=== PATIENT | female | born 1990 | race Two or more races ===

== ENCOUNTER 2020-04-09 15:21 | Emergency (ER) | payer OTHER ==
[~2020-04-09] VITALS: Ht 165.1 cm; Wt 77.1 kg
[2020-04-09 15:56] VITALS: BP 121/83
[2020-04-09] MEDS ORDERED: KETOROLAC TROMETH 60MG/2ML VIAL IM ONE (16:30)
== END 2020-04-09 18:12 | disposition home or self-care (01) ==
LOC: ER 15:21
DX: S16.1XXA Strain of muscle, fascia and tendon at neck level, initial encounter (principal); R51.9 Headache, unspecified; V43.52XA Car driver injured in collision with other type car in traffic accident, initial encounter; Y93.89 Activity, other specified; Y92.488 Other paved roadways as the place of occurrence of the external cause; Y99.8 Other external cause status
CPT/HCPCS: 70450; 71046; 72125; 72170; 96372; 99285; J1885

== ENCOUNTER 2020-11-02 05:29 | Emergency (ER) | payer MEDICAID ==
[~2020-11-02] VITALS: Ht 165.1 cm; Wt 81.6 kg
[2020-11-02] MEDS ORDERED: ONDANSETRON HCL 4 MG/2 ML VIAL IV ONE (06:15)
[2020-11-02] MEDS ORDERED: MORPHINE SULFATE 4 MG/ML SYR/VIAL IV ONE (06:15)
[2020-11-02 06:44] LABS: Urine Bacteria MOD /hpf (None Seen); Urine Blood Negative /uL (Negative); Urine Specific Gravity 1.005 (1.001-1.035); Urine Sperm PRESENT /hpf (None Seen); Urine WBC 4 /hpf (0 - 5)
[2020-11-02] MEDS ORDERED: SODIUM CHLORIDE 0.9% 1,000 ML IV ONE ×2 (07:15)
[2020-11-02 07:22] LABS: Basophils # (auto) 0 10 ^3/uL (0-0.2); Basophils % (auto) 0.3 % (0.0-2.0); Eosinophils # (auto) 0.1 10 ^3/uL (0-0.8); Eosinophils % (auto) 1.1 % (0.0-7.0); Hemoglobin 13.9 g/dL (12.2-16.2); Lymphocytes # (auto) 3.3 10 ^3/uL (0.4-5.4); Lymphocytes % (auto) 43.7 % (10.0-50.0); Mean Corpuscular Hemoglobin 30.7 pg (28.0-32.0); Mean Corpuscular Hgb Conc. 33.9 g/dL (32.0-36.0); Mean Corpuscular Volume 90.4 fL (80.0-100.0); Monocytes # (auto) 0.5 10 ^3/uL (0-1.3); Monocytes % (auto) 6.1 % (0.0-12.0); Neutrophils # (auto) 3.6 10 ^3/uL (1.6-8.6); Neutrophils % (auto) 48.8 % (37.0-80.0); Red Blood Cells 4.53 10^6/uL (4.0-5.20); Red Cell Distribution Width 13.3 % (11.8-14.3); White Blood Cell 7.5 10^3/uL (4.4-10.8)
[2020-11-02 07:36] LABS: Magnesium 2.1 mg/dL (1.6-2.6)
[2020-11-02 07:44] LABS: Albumin 3.9 g/dL (3.4-5.0); BUN/Creatinine Ratio 23.7; Bilirubin, Total 0.6 mg/dL (0.2-1.0); Calcium 8.7 mg/dL (8.5-10.1); Total Protein 7.3 g/dL (6.4-8.2)
[2020-11-02 10:42] VITALS: BP 102/60
== END 2020-11-02 10:59 | disposition home or self-care (01) ==
LOC: EDBD 05:29 → ER 05:29
DX: N20.0 Calculus of kidney (principal); D25.9 Leiomyoma of uterus, unspecified
CPT/HCPCS: 36415; 74176; 76856; 80053; 81001; 82150; 83690; 83735; 84702; 85025; 85049; 96361; 96374; 96375; 99285; J2270; J2405; J7030

== ENCOUNTER 2020-11-17 12:07 | Emergency (ER) | payer MEDICAID ==
[~2020-11-17] VITALS: Ht 165.1 cm; Wt 86.2 kg
[2020-11-17 12:57] VITALS: BP 109/61
[2020-11-17] MEDS ORDERED: methylPREDNISolone SOD SUCC 125 MG/2 ML VL IM ONE (13:30)
[2020-11-17] MEDS ORDERED: diphenhdrAMINE HCL 50 MG/1 ML VL IM ONE (13:30)
[2020-11-17] MEDS ORDERED: EPINEPHrine HCL 1 MG/1 ML AMP IM ONE (13:30)
== END 2020-11-17 14:28 | disposition home or self-care (01) ==
LOC: ER 12:07
DX: T78.40XA Allergy, unspecified, initial encounter (principal); Y92.89 Other specified places as the place of occurrence of the external cause
CPT/HCPCS: 96372; 99284; J0171; J1200; J2930

== ENCOUNTER 2024-02-18 12:35 | Emergency (ER) | payer MEDICAID ==
[~2024-02-18] VITALS: Ht 165.1 cm; Wt 95.2 kg
[~2024-02-18 12:35] MED LIST: BENZ100C97 PO; PROM1SOL4 PO
[2024-02-18 13:53] VITALS: PULSE 84; RESP 18; O2SAT 97
[2024-02-18] MEDS: cefTRIAXone SOD 1,000 MG VL IM ONE (14:09)
[2024-02-18] MEDS: LOPERAMIDE HCL 2 MG CAP/TAB PO ONE (14:09)
[2024-02-18] MEDS ORDERED: LOPE7.5C PO (14:54)
[2024-02-18] MEDS ORDERED: IBUP-1456 PO (14:54)
[2024-02-18] MEDS ORDERED: CIPR-173 PO (14:54)
[2024-02-18 14:59] VITALS: BP 120/68; PULSE 65; RESP 18; TEMP 98.6; O2SAT 98
== END 2024-02-18 15:03 | disposition home or self-care (01) ==
LOC: ER 12:35
DX: J03.90 Acute tonsillitis, unspecified (principal); H66.93 Otitis media, unspecified, bilateral; R19.7 Diarrhea, unspecified; Z79.899 Other long term (current) drug therapy
CPT/HCPCS: 96372; 99283; J0696

== ENCOUNTER 2024-06-29 10:09 | Emergency (ER) | payer MEDICAID ==
[~2024-06-29] VITALS: Ht 165.1 cm; Wt 92.7 kg
[~2024-06-29 10:09] MED LIST changes: +CIPR-173 PO; +IBUP-1456 PO; +LOPE7.5C PO
[2024-06-29 11:15] VITALS: BP 121/94; PULSE 95; RESP 18; TEMP 97.9; O2SAT 96
[2024-06-29 11:21] LABS: Urine Bacteria FEW /hpf (None Seen); Urine Blood Negative /uL (Negative); Urine Clarity Ex.Turbid (Clear); Urine Color Light-Orange (Yellow); Urine Mucus FEW (None Seen); Urine Protein, UAD 2+ (Negative); Urine Specific Gravity 1.025 (1.001-1.035); Urine Squamous Epithelial Cell MANY /hpf (<5); Urine Urobilinogen Normal (Negative); Urine WBC 18 /HPF (0-5); Urine pH 8.5 (5.0-9.0)
--- NOTE | 2024-06-29 11:52 | ED.PDOC ---
GI ASSESSMENT HPI Comments A pleasant 34-year-old female with no MHx that presents with a chief complaint of nausea vomiting x 1 day Also c/o sore throat, body aches fatigue Possible cause: spoiled foot Vomited 7 x last night Last vomiting episode 1 hr ago No med tried last menstrual 06/20 Denies urgency frequency dysuria or hematuria Denies abdominal pain/pelvic pain/nausea vomiting Denies fevers chills night sweats unintentional weight loss Chief Complaint: Flu like Time Seen by MD: 10:37 Primary Care Provider: [facility] Reviewed Notes: Nurses Notes, Medications, Allergies Allergies: Coded Allergies: NO KNOWN ALLERGIES (Unverified , 04/09/20) Home Meds Active Scripts Ondansetron HCl (Ondansetron) 4 Mg Tab, 4 MG PO Q6HP PRN for 2 Days, #8 TAB 0 Refills Prov:ADRIANO GEIGER NP 06/29/24 Nitrofurantoin Monohydrate Mac (Macrobid) 100 Mg Cap, 100 MG PO BID for 7 Days, #14 CAP 0 Refills Prov:ADRIANO GEIGER NP 06/29/24 Ibuprofen (Ibuprofen) 800 Mg Tab, 1 TAB PO TID, #24 TAB Prov:ANTIONE WELLS 02/18/24 Loperamide HCl (Imodium A-D) 2 Mg Cap, 4 MG PO BID, #30 CAP Prov:ANTIONE WELLS 02/18/24 Ciprofloxacin Hcl (Cipro) 500 Mg Tab, 1 TAB PO BID, #14 TAB Prov:ANTIONE WELLS 02/18/24 Benzonatate (Benzonatate) 100 Mg Cap, 100 MG PO TID for 10 Days, #30 CAP 0 Refills Prov:ADRIANO GEIGER NP 06/02/23 Promethazine-Dm (Promethazine Dm 6.25-15 mg/5Ml) 1 La La, 5 ML PO Q6HPRN PRN for 10 Days, #200 ML 0 Refills Prov:ADRIANO GEIGER NP 06/02/23 Information Source: Patient Mode of Arrival: Ambulatory Past Medical History PAST MEDICAL HISTORY: Denies Surgical History: Denies all surgeries PANTS MAKER History: No Pertinent PANTS MAKER History Family History Family History: Reviewed,noncontributory to illness Social History Smoker: Non-Smoker Alcohol: Denies ETOH Use Drugs: Denies Drug Use Lives In: Home All Other Systems: Reviewed and Negative (per hpi) Physical Exam General Appearance: No Apparent Distress, Normal HEENT: Normal ENT Inspection, Pharynx Normal, TMs Normal Neck: Full Range of Motion, Non-Tender, Normal, Normal Inspection Respiratory: Chest Non-Tender, Lungs Clear, No Accessory Muscle Use, No Respiratory Distress, Normal Breath Sounds Cardiovascular: No Murmur, No Gallop, Regular Rate/Rhythm Breast Exam: Deferred Gastrointestinal: No Organomegaly, Non Tender, No Pulsatile Mass, Normal Bowel Sounds, Soft Genitalia: Deferred Pelvic: Deferred Rectal: Deferred Extremities: No calf tenderness, Normal capillary refill, Normal inspection, Normal range of motion, Non-tender, No pedal edema Musculoskeletal : Apperance: Normal Neurologic: Alert, No Motor Deficits, Normal Affect, Normal Mood, No Sensory Deficits Cerebellar Function: Normal Reflexes: Normal Skin: Dry, Normal Color, Warm Lymphatic: No Adenopathy Was a procedure done? Was a procedure done?: No GI differential Dx Differential Diagnosis: Gastroenteritis, Food Poisoning, , Viral X-Ray, Labs, Meds, VS Vital Signs Date Time Temp Pulse Resp B/P (MAP) Pulse Ox O2 Delivery O2 Flow Rate FiO2 06/29/24 11:15 95 18 96 Room Air 06/29/24 11:15 97.9 95 18 121/94 (103) 96 97.9 06/29/24 10:34 97.9 95 18 121/94 (103) 96 Lab Test 06/29/24 12:08 06/29/24 11:52 06/29/24 10:41 Range/Units White Blood Count 5.4 4.4-10.8 10^3/uL Red Blood Count 5.38 H 4.0-5.20 10^6/uL Hemoglobin 16.2 12.2-16.2 g/dL Hematocrit 48.6 H 36.0-46.0 % Mean Corpuscular Volume 90.4 80.0-100.0 fL Mean Corpuscular Hemoglobin 30.2 28.0-32.0 pg Mean Corpuscular Hemoglobin Concent 33.4 32.0-36.0 g/dL Red Cell Distribution Width 13.2 11.8-14.3 % Platelet Count 277 140-450 10^3/uL Mean Platelet Volume 9.2 6.9-10.8 fL Neutrophils (%) (Auto) 48.9 37.0-80.0 % Lymphocytes (%) (Auto) 41.8 10.0-50.0 % Monocytes (%) (Auto) 7.5 0.0-12.0 % Eosinophils (%) (Auto) 1.3 0.0-7.0 % Basophils (%) (Auto) 0.5 0.0-2.0 % Neutrophils # (Auto) 2.7 1.6-8.6 10 ^3/uL Lymphocytes # (Auto) 2.3 0.4-5.4 10 ^3/uL Monocytes # (Auto) 0.4 0-1.3 10 ^3/uL Eosinophils # (Auto) 0.1 0-0.8 10 ^3/uL Basophils # (Auto) 0 0-0.2 10 ^3/uL Nucleated Red Blood Cells 0.0 % Sodium Level 140 136-145 mmol/L Potassium Level 4.0 3.5-5.1 mmol/L Chloride Level 105 98-107 mmol/L Carbon Dioxide Level 27 20-31 mmol/L Anion Gap 8 5-15 Blood Urea Nitrogen 8 L 9-23 mg/dL Creatinine 0.82 0.550-1.02 mg/dL Glomerular Filtration Rate Calc 95 >90 mL/min BUN/Creatinine Ratio 9.8 L 10.0-20.0 Serum Glucose 88 74-106 mg/dL Calcium Level 10.6 H 8.7-10.4 mg/dL Urine Test Negative Negative Urine Color Light-orange Yellow Urine Clarity Ex.turbid Clear Urine pH 8.5 5.0-9.0 Urine Specific [place] 1.025 1.001-1.035 Urine Protein 2+ H Negative Urine Ketones 2+ H Negative Urine Blood Negative Negative /uL Urine Nitrite Negative Negative Urine Bilirubin Negative Negative Urine Urobilinogen Normal Negative mg/dL Urine Leukocyte Esterase 3+ Negative /uL Urine RBC 4 0 - 4 /hpf Urine Microscopic WBC 18 H 0-5 /HPF Urine Squamous Epithelial Cells Many <5 /hpf Urine Bacteria Few H None Seen /hpf Urine Mucus Few None Seen Urine Glucose Normal Normal mg/dL Current Medications Medications (Trade) Dose Ordered Sig/Azul Route Start Time Stop Time Status Last Admin Sodium Chloride 1,000 ml @ 1,000 mls/hr Q1H ONCE IV 06/29/24 12:00 06/29/24 12:59 DC 06/29/24 12:00 Acetaminophen (Tylenol Tablet) 650 mg ONCE ONCE PO 06/29/24 12:00 06/29/24 12:01 DC 06/29/24 12:36 Ceftriaxone Sodium (Rocephin) 1,000 mg ONCE ONCE IM 06/29/24 13:15 06/29/24 13:59 DC 06/29/24 14:15 X-Ray, Labs, Meds, VS Comment Patient presents with abdominal pain, nausea, vomiting, myalgia The cause of the patients symptoms is not clear but based on history the symptoms are likely due to either food poisoning or viral gastrointestinal infection. Also found incidental urinary tract infection on urinalysis I also considered enteropathic gastroenteritis, but the patient has not had any bloody stools. Traveler's diarrhea but the patient has not traveled recently. Low suspicion for appendicitis as the patient is well-appearing without any tenderness or pain to the abdomen. Patient received IV Zofran and one bolus normal saline and on revaluation the patient is feeling much better, tolerating PO fluids, and shows no signs of dehydration. Suspect likely transient course of illness. Presumed self-limited etiology, provided oral rehydration education. Plan discharge home with prompt primary care physician follow up in the next 48 hours. Return precautions discussed. History and lab findings also consistent with UTI Vital signs stable patient stable Patient tolerating p.o. fluids Encouraged parents to increase water intake Practice good personal hygiene. Always wipe from front to back Drink plenty of fluids to help flush bacteria out of the urinary tract Empty bladder completely as soon as you feel the urge Empty bladder after intercourse Prescribed p.o. antibiotics for presentation of symptoms Complete course of antibiotic therapy even if symptoms improve or resolve. There should be no leftover antibiotics as this can lead to antibiotic resistant bacteria and even worse infection. Parents verbalized understanding. Potential side effects discussed with patient including abdominal pain, nausea, diarrhea. On reevaluation, patient had symptomatic improvement. Patient is stable for discharge at this time. External notes reviewed. Test results and diagnostic imaging interpreted. All diagnostic findings, discharge care, education and instructions provided Follow-up with PCP in 2 to 3 days Patient verbalized understanding and agreed to treatment plan Vital signs stable, afebrile, no acute distress noted Patient ambulatory with strong steady gait Advised to return precautions for any new or worsening symptoms, return to ER immediately for re-evaluation Patient is aware that the purpose of this visit was for an acute medical emergency requiring emergent stabilization. Chronic conditions, including malignancies have not been ruled out. Patient is instructed to follow up with PCP as directed and discharge instructions for continued care and workup. If unable to arrange follow-up, patient is to return to the emergency department for reassessment. Patient (parent or legal guardian if applicable) was given verbal and written discharge instructions and acknowledges understanding. Time of 1ST Reevaluation: 13:00 Reevaluation 1ST: Improved Patient Education/Counseling: Diagnosis, Treatment Family Education/Counseling: Diagnosis, Treatment Departure 1 Departure Time of Disposition: 13:19 Impression: Primary Impression: UTI (urinary tract infection) Qualified Codes: N30.00 - Acute cystitis without hematuria Additional Impression: Nausea Disposition: HOME / SELF CARE / HOMELESS Condition: Fair e-Prescriptions Ondansetron HCl (Ondansetron) 4 Mg Tab 4 MG PO Q6HP PRN for 2 Days, #8 TAB 0 Refills Prov: ADRIANO GEIGER NP 06/29/24 Nitrofurantoin Monohydrate Mac (Macrobid) 100 Mg Cap 100 MG PO BID for 7 Days, #14 CAP 0 Refills Prov: ADRIANO GEIGER NP 06/29/24 Critical Care Note Critical Care Time?: No Stability Stability form required: No Heart Score Heart Score: Heart Score Response (Comments) Value History N/A 0 EKG N/A 0 Age N/A 0 Risk Factors N/A 0 Troponin N/A 0 Total 0 ADRIANO GEIGER NP Jun 29, 2024 11:52
[2024-06-29] MEDS: SODIUM CHLORIDE 0.9% 1,000 ML IV ONE (12:00)
[2024-06-29] MEDS: ONDANSETRON HCL 4 MG/2 ML VIAL IV ONE (12:00)
[2024-06-29 12:22] LABS: Basophils # (auto) 0 10 ^3/uL (0-0.2); Basophils % (auto) 0.5 % (0.0-2.0); Eosinophils # (auto) 0.1 10 ^3/uL (0-0.8); Eosinophils % (auto) 1.3 % (0.0-7.0); Hematocrit 48.6 % (36.0-46.0); Hemoglobin 16.2 g/dL (12.2-16.2); Lymphocytes # (auto) 2.3 10 ^3/uL (0.4-5.4); Lymphocytes % (auto) 41.8 % (10.0-50.0); Mean Corpuscular Hemoglobin 30.2 pg (28.0-32.0); Mean Corpuscular Hgb Conc. 33.4 g/dL (32.0-36.0); Mean Corpuscular Volume 90.4 fL (80.0-100.0); Monocytes # (auto) 0.4 10 ^3/uL (0-1.3); Monocytes % (auto) 7.5 % (0.0-12.0); Neutrophils # (auto) 2.7 10 ^3/uL (1.6-8.6); Neutrophils % (auto) 48.9 % (37.0-80.0); Platelet Count (auto) 277 10^3/uL (140-450); Red Blood Cells 5.38 10^6/uL (4.0-5.20); Red Cell Distribution Width 13.2 % (11.8-14.3); White Blood Cell 5.4 10^3/uL (4.4-10.8)
[2024-06-29 12:34] LABS: Chloride 105 mmol/L (98-107); Sodium 140 mmol/L (136-145)
[2024-06-29 12:35] LABS: Anion Gap 8 (5-15); Carbon Dioxide 27 mmol/L (20-31)
[2024-06-29] MEDS: ACETAMINOPHEN 325 MG TAB PO ONE (12:36)
[2024-06-29 12:40] LABS: BUN/Creatinine Ratio 9.8 (10.0-20.0); Glucose 88 mg/dL (74-106)
[2024-06-29 12:46] LABS: Blood Urea Nitrogen 8 mg/dL (9-23); Calcium 10.6 mg/dL (8.7-10.4)
[2024-06-29] MEDS ORDERED: NITR-87 PO (13:03)
[2024-06-29] MEDS ORDERED: ONDA-155 PO (13:45)
[2024-06-29] MEDS: cefTRIAXone SOD 1,000 MG VL IM ONE (14:15)
== END 2024-06-29 14:31 | disposition home or self-care (01) ==
LOC: ER 10:09
DX: N39.0 Urinary tract infection, site not specified (principal); R11.0 Nausea; Z79.899 Other long term (current) drug therapy
CPT/HCPCS: 36415; 80048; 81001; 81025; 85025; 96360; 96361; 96372; 99283; J0696; J2405; J7030

== ENCOUNTER 2024-08-12 22:49 | Inpatient (IN) | payer MEDICAID ==
[~2024-08-12] VITALS: Ht 165.1 cm; Wt 97.6 kg
[~2024-08-12 22:49] MED LIST changes: +NITR-87 PO; +ONDA-155 PO
--- NOTE | 2024-08-12 23:21 | ED.PDOC ---
General HPI Comments 34-year-old female came to emergency room due the flank pains. Patient has history of kidney stones and UTI, states for the past 3 days she has been experiencing bilateral flank pains, left worse than the right, associated with nausea, dysuria, and urinary frequency. States pain is similar when she had kidney stones before Chief Complaint: Flank pains Time Seen by MD: 23:21 Primary Care Provider: [facility] Reviewed notes: Nurses Notes Allergies: Coded Allergies: NO KNOWN ALLERGIES (Unverified , 04/09/20) Home Meds Active Scripts Ondansetron HCl (Ondansetron) 4 Mg Tab, 4 MG PO Q6HP PRN for 2 Days, #8 TAB 0 Refills Prov:ADRIANO GEIGER TEST CAR DRIVER 06/29/24 Nitrofurantoin Monohydrate Mac (Macrobid) 100 Mg Cap, 100 MG PO BID for 7 Days, #14 CAP 0 Refills Prov:ADRIANO GEIGER NP 06/29/24 Ibuprofen (Ibuprofen) 800 Mg Tab, 1 TAB PO TID, #24 TAB Prov:ANTIONE WELLS 02/18/24 Loperamide HCl (Imodium A-D) 2 Mg Cap, 4 MG PO BID, #30 CAP Prov:ANTIONE WELLS 02/18/24 Ciprofloxacin Hcl (Cipro) 500 Mg Tab, 1 TAB PO BID, #14 TAB Prov:ANTIONE WELLS 02/18/24 Benzonatate (Benzonatate) 100 Mg Cap, 100 MG PO TID for 10 Days, #30 CAP 0 Refills Prov:ADRIANO GEIGER NP 06/02/23 Promethazine-Dm (Promethazine Dm 6.25-15 mg/5Ml) 1 La La, 5 ML PO Q6HPRN PRN for 10 Days, #200 ML 0 Refills Prov:ADRIANO GEIGER TEST CAR DRIVER 06/02/23 Information Source: Patient Mode of Arrival: Ambulatory Severity: Moderate Inability to void: Moderate Timing: Days Duration: Intermittent Has not urinated for: Minutes Prehospital treatment: None Onset: Spontaneous Symptoms: Dysuria, Frequency History of: UTI, Kidney stone Location: (R) Flank, (L)Flank Modifying factors: None associated signs and symptoms: Nausea, Flank Pain, Dysuria, Frequency Past Medical History PAST MEDICAL HISTORY: Kidney Stones, UTI'S Surgical History: Denies all surgeries POWER PLANT OPERATIONS MANAGER History: No Pertinent POWER PLANT OPERATIONS MANAGER History Family History Family History: Reviewed,noncontributory to illness Social History Smoker: Non-Smoker Alcohol: Denies ETOH Use Drugs: Denies Drug Use Lives In: Home Constitutional: denies: chills, diaphoresis, fatigue, fever, malaise, sweats, weakness, others EENTM: denies: blurred vision, double vision, ear bleeding, ear discharge, ear drainage, ear pain, ear ringing, eye pain, eye redness, hearing loss, mouth pain, mouth swelling, nasal discharge, nose bleeding, nose congestion, nose pain, photophobia, tearing, throat pain, throat swelling, voice changes, others Respiratory: denies: cough, hemoptysis, orthopnea, SOB at rest, shortness of breath, SOB with excertion, stridor, wheezing, others Cardiovascular: denies: chest pain, dizzy spells, diaphoresis, Dyspnea on exertion, edema, irregular heart beat, left arm pain, lightheadedness, palpitations, PND, syncope, others Gastrointestinal: reports: nausea; denies: abdomen distended, abdominal pain, blood streaked bowels, constipated, diarrhea, dysphagia, difficulty swallowing, hematemesis, melena, poor appetite, poor fluid intake, rectal bleeding, rectal pain, vomiting, others Genitourinary: reports: burning, dysuria, flank pain, frequency; denies: abnormal vagina bleeding, dyspareunia, hematuria, incontinence, pain, , vagina discharge, urgency, others Neurological: denies: dizziness, fainting, headache, left sided numbness, left sided weakness, numbness, paresthesia, pre-existing deficit, right sided numbness, right sided weakness, seizure, speech problems, tingling, tremors, weakness, others Musculoskeletal: denies: back pain, gout, joint pain, joint swelling, muscle pain, muscle stiffness, neck pain, others Integumetry: denies: bruises, change in color, change in hair/nails, dryness, laceration, lesions, lumps, rash, wounds, others Allergic/Immunocompromised: denies: Difficulty Healing, Frequent Infections, Hives, Itching, others Hematologic/Lymphatic: denies: anemia, blood clots, easy bleeding, easy bruising, swollen glands, others Endocrine: denies: excessive hunger, excessive sweating, excessive thirst, excessive urination, flushing, intolerance to cold, intolerance to heat, unexplained weight gain, unexplained weight loss, others Psychiatric: denies: anxiety, bipolar disorder, depression, hopeless, panic disorder, schizophrenia, sleepless, suicidal, others Physical Exam General Appearance: No Apparent Distress, Normal HEENT: Normal ENT Inspection, Pharynx Normal, TMs Normal Neck: Full Range of Motion, Non-Tender, Normal, Normal Inspection Respiratory: Chest Non-Tender, Lungs Clear, No Accessory Muscle Use, No Respiratory Distress, Normal Breath Sounds Cardiovascular: No Edema, No JVD, No Murmur, No Gallop, Normal Peripheral Pulses, Regular Rate/Rhythm Breast Exam: Deferred Gastrointestinal: No Organomegaly, Non Tender, No Pulsatile Mass, Normal Bowel Sounds, Soft Genitalia: Deferred Pelvic: Deferred Rectal: Deferred Extremities: No calf tenderness, Normal capillary refill, Normal inspection, Normal range of motion, Non-tender, No pedal edema Musculoskeletal : Apperance: Normal Neurologic: Alert, refrigerator glazier II-XII nml as Tested, No Motor Deficits, Normal Affect, Normal Mood, No Sensory Deficits Cerebellar Function: Normal Reflexes: Normal Skin: Dry, Normal Color, Warm Lymphatic: No Adenopathy Was a procedure done? Was a procedure done?: No Differential Diagnosis Kidney stone (Female): Musculoskeletal pain, Pancreatitis, Pyelonephritis, Renal failure, Strain, Urinary obstruction, Urolithiasis Urinary Problem (Female): Pyelonephritis, Urinary retention, Urolithiasis, UTI X-Ray, Labs, Meds, VS Vital Signs Date Time Temp Pulse Resp B/P (MAP) Pulse Ox O2 Delivery O2 Flow Rate FiO2 08/13/24 00:49 98.1 70 17 106/73 (84) 99 98.1 08/13/24 00:47 76 17 106/73 08/12/24 23:37 98.1 80 16 129/87 (101) 98 98.1 08/12/24 23:37 80 16 98 Room Air 08/12/24 23:17 98.1 80 16 129/87 (101) 98 98.1 Lab Test 08/12/24 23:31 08/12/24 23:20 Range/Units Urine Color Dark-yellow Yellow Urine Clarity Turbid H Clear Urine pH 6.0 5.0-9.0 Urine Specific [place] 1.008 1.001-1.035 Urine Protein Trace H Negative Urine Ketones Negative Negative Urine Blood 1+ H Negative /uL Urine Nitrite 2+ H Negative Urine Bilirubin Negative Negative Urine Urobilinogen Normal Negative mg/dL Urine Leukocyte Esterase 3+ Negative /uL Urine RBC 11 0 - 4 /hpf Urine Microscopic WBC 241 H 0-5 /HPF Urine Squamous Epithelial Cells Mod <5 /hpf Urine Bacteria Mod H None Seen /hpf Urine Mucus Few None Seen Urine Glucose Normal Normal mg/dL White Blood Count 10.4 4.4-10.8 10^3/uL Red Blood Count 4.42 4.0-5.20 10^6/uL Hemoglobin 13.6 12.2-16.2 g/dL Hematocrit 39.9 36.0-46.0 % Mean Corpuscular Volume 90.3 80.0-100.0 fL Mean Corpuscular Hemoglobin 30.9 28.0-32.0 pg Mean Corpuscular Hemoglobin Concent 34.2 32.0-36.0 g/dL Red Cell Distribution Width 13.4 11.8-14.3 % Platelet Count 214 140-450 10^3/uL Mean Platelet Volume 9.4 6.9-10.8 fL Neutrophils (%) (Auto) 63.0 37.0-80.0 % Lymphocytes (%) (Auto) 30.4 10.0-50.0 % Monocytes (%) (Auto) 5.7 0.0-12.0 % Eosinophils (%) (Auto) 0.3 0.0-7.0 % Basophils (%) (Auto) 0.6 0.0-2.0 % Neutrophils # (Auto) 6.6 1.6-8.6 10 ^3/uL Lymphocytes # (Auto) 3.2 0.4-5.4 10 ^3/uL Monocytes # (Auto) 0.6 0-1.3 10 ^3/uL Eosinophils # (Auto) 0 0-0.8 10 ^3/uL Basophils # (Auto) 0.1 0-0.2 10 ^3/uL Nucleated Red Blood Cells 0.0 % Sodium Level 139 136-145 mmol/L Potassium Level 3.8 3.5-5.1 mmol/L Chloride Level 105 98-107 mmol/L Carbon Dioxide Level 26 20-31 mmol/L Anion Gap 8 5-15 Blood Urea Nitrogen 10 9-23 mg/dL Creatinine 0.76 0.550-1.02 mg/dL Glomerular Filtration Rate Calc 104 >90 mL/min BUN/Creatinine Ratio 13.2 10.0-20.0 Serum Glucose 95 74-106 mg/dL Lactic Acid Level 0.7 0.4-2.0 mmol/L Calcium Level 9.8 8.7-10.4 mg/dL Current Medications Medications (Trade) Dose Ordered Sig/Azul Route Start Time Stop Time Status Last Admin Sodium Chloride 1,000 ml @ 1,000 mls/hr Q1H ONCE IV 08/12/24 23:15 08/13/24 00:14 DC 08/12/24 23:54 Ondansetron HCl (Zofran) 4 mg ONCE ONCE IV 08/12/24 23:15 08/12/24 23:16 DC 08/12/24 23:58 Ketorolac Tromethamine (Toradol Injection) 15 mg ONCE ONCE IV 08/12/24 23:15 08/12/24 23:16 DC 08/12/24 23:58 Acetaminophen (Tylenol Tablet) 650 mg ONCE ONCE PO 08/12/24 23:15 08/12/24 23:16 DC 08/13/24 00:18 Ondansetron HCl (Zofran) 4 mg ONCE ONCE IV 08/13/24 00:30 08/13/24 00:31 DC 08/13/24 00:45 Morphine Sulfate 4 mg ONCE ONCE IV 08/13/24 00:30 08/13/24 00:31 DC 08/13/24 00:47 Vancomycin HCl 200 ml @ 200 mls/hr ONCE ONCE IV 08/13/24 00:30 08/13/24 01:29 08/13/24 00:44 Time of 1ST Reevaluation: 23:14 Reevaluation 1ST: Unchanged Patient Education/Counseling: Diagnosis, Treatment Family Education/Counseling: No Family Present Departure 1 Departure Time of Disposition: 01:30 (Patient likely with pyelonephritis. Patient is having severe flank pain CVA tenderness. We will empirically cover patient with antibiotics and admit patient for further workup) Impression: Primary Impression: Pyelonephritis Additional Impression: Intractable abdominal pain Disposition: ADMITTED INPATIENT Admit to: Med Surg Condition: Serious Critical Care Note Critical Care Time?: Yes Critical care comment: Intractable abdominal pain Authorized and Performed by: Francesco Murphy MD Total critical care time: Approximately 38 minutes Due to a high probability of clinically significant, life threatening deterioration, the patient required my highest level of preparedness to intervene emergently and I personally spent this critical care time directly and personally managing the patient. This critical care time included obtaining a history; examining the patient; pulse oximetry; ordering and review of studies; arranging urgent treatment with development of a management plan; evaluation of patient's response to treatment; frequent reassessment; and, discussions with other providers. This critical care time was performed to assess and manage the high probability of imminent, life-threatening deterioration that could result in multi-organ failure. It was exclusive of separately billable procedures and treating other patients and teaching time. Please see my other sections and the rest of the note for further information on patient assessment and treatment. Stability Stability form required: No Heart Score Heart Score: Heart Score Response (Comments) Value History N/A 0 EKG N/A 0 Age N/A 0 Risk Factors N/A 0 Troponin N/A 0 Total 0 I personally scribed for FRANCESCO MURPHY MD ([email or web address]) on 08/12/24 at 23:21. Electronically submitted by Rashi Bonilla ([email or web address]). FRANCESCO MURPHY MD Aug 12, 2024 23:21
[2024-08-12 23:29] LABS: Basophils # (auto) 0.1 10 ^3/uL (0-0.2); Basophils % (auto) 0.6 % (0.0-2.0); Eosinophils # (auto) 0 10 ^3/uL (0-0.8); Eosinophils % (auto) 0.3 % (0.0-7.0); Hematocrit 39.9 % (36.0-46.0); Hemoglobin 13.6 g/dL (12.2-16.2); Lymphocytes # (auto) 3.2 10 ^3/uL (0.4-5.4); Lymphocytes % (auto) 30.4 % (10.0-50.0); Mean Corpuscular Hemoglobin 30.9 pg (28.0-32.0); Mean Corpuscular Hgb Conc. 34.2 g/dL (32.0-36.0); Mean Corpuscular Volume 90.3 fL (80.0-100.0); Monocytes # (auto) 0.6 10 ^3/uL (0-1.3); Monocytes % (auto) 5.7 % (0.0-12.0); Neutrophils # (auto) 6.6 10 ^3/uL (1.6-8.6); Platelet Count (auto) 214 10^3/uL (140-450); Red Blood Cells 4.42 10^6/uL (4.0-5.20); Red Cell Distribution Width 13.4 % (11.8-14.3); White Blood Cell 10.4 10^3/uL (4.4-10.8)
[2024-08-12 23:37] LABS: Urine Bacteria MOD /hpf (None Seen); Urine Blood 1+ /uL (Negative); Urine Clarity Turbid (Clear); Urine Color Dark-Yellow (Yellow); Urine Mucus FEW (None Seen); Urine Protein, UAD TRACE (Negative); Urine Specific Gravity 1.008 (1.001-1.035); Urine Squamous Epithelial Cell MOD /hpf (<5); Urine Urobilinogen Normal (Negative); Urine WBC 241 /HPF (0-5)
[2024-08-12 23:38] LABS: Chloride 105 mmol/L (98-107); Potassium 3.8 mmol/L (3.5-5.1); Sodium 139 mmol/L (136-145)
[2024-08-12 23:39] LABS: Anion Gap 8 (5-15); Calcium 9.8 mg/dL (8.7-10.4); Carbon Dioxide 26 mmol/L (20-31)
[2024-08-12 23:44] LABS: BUN/Creatinine Ratio 13.2 (10.0-20.0); Blood Urea Nitrogen 10 mg/dL (9-23); Glucose 95 mg/dL (74-106)
[2024-08-12] MEDS: SODIUM CHLORIDE 0.9% 1,000 ML IV ONE (23:54)
[2024-08-12] MEDS: ONDANSETRON HCL 4 MG/2 ML VIAL IV ONE (23:58)
[2024-08-12] MEDS: KETOROLAC TROMETH 30 MG/ML 1ML VIAL IV ONE (23:58)
[2024-08-13] VITALS (7 sets, daily range): BP systolic 87–105; BP diastolic 51–67; PULSE 70–88; RESP 13–18; TEMP 97.7–99.4; O2SAT 94–99
[2024-08-13] MEDS: ACETAMINOPHEN 325 MG TAB PO ONE (00:18)
[2024-08-13] MEDS: VANCOMYCIN 1GM/200ML PM 200 ML IV ONE (00:44)
[2024-08-13] MEDS: ONDANSETRON HCL 4 MG/2 ML VIAL IV ONE ×2 (00:45→04:50)
[2024-08-13] MEDS: MORPHINE SULFATE 4 MG/ML SYR/VIAL IV ONE ×2 (00:47→04:49)
[2024-08-13] MEDS: CEFEPIME 2GM/50ML NS 50 ML IV ONE (01:52)
[2024-08-13] MEDS: SODIUM CHLORIDE 0.9% 1,000 ML IV ONE ×2 (01:53→09:39)
--- NOTE | 2024-08-13 02:09 | DVH ---
Procedure: XY KUB ABDOMEN SINGLE VIEW Exam Date: 08/13/2024 01:38 AM History: flank pain Comparison Study: None Technique: AP upright of the abdomen FINDINGS: No focal evidence of airspace disease. The cardiomediastinal silhouette is within normal limits. No acute osseous lesions. Nonobstructive bowel gas pattern noted. There is no evidence for pneumoperitoneum. No abnormal calcif ications noted. IMPRESSION: 1. Non-specific gas-filled loops of bowel. No evidence of obstruction.
[2024-08-13] MEDS: KETOROLAC TROMETH 30 MG/ML 1ML VIAL IV ONE (10:21)
--- NOTE | 2024-08-13 11:12 | DVHHP2 ---
History of Present Illness Reason for Visit: Abdominal pain History of Present Illness BETTY Morillo is a 34-year-old female with past medical history of kidney stones and bilateral tubal ligation who presents to the ED with abdominal pain, right flank pain, dysuria, nausea, and urinary frequency x3 days. Patient reports that the pain is 10/10 pulsating and constant. She is also endorsing bilateral lower quadrant pain with no hematuria endorsed. Patient reports that there are no triggering or alleviating factors. Patient denies any chest pain, shortness of breath, fever, chills, lightheadedness, weakness, dizziness, recent sick contacts, recent travels, recent ingestion of spoiled food, and recent trauma or injury. Past Medical History Kidney stones Past Surgical History: Tubal Ligation Family History: Hypertension, Other (Mom with hypertension and kidney disease) Smoke: No ALCOHOL: none Drugs: None Lives: with Family Domestic Violence: Neg Review of Systems Gastrointestinal: Nausea, Abdominal Pain Genitourinary: Dysuria Musculoskeletal: other (Flank pain) Allergies: Coded Allergies: NO KNOWN ALLERGIES (Unverified , 04/09/20) Medications Current Medications Medications Dose Ordered Sig/Azul Route Start Time Stop Time Status Last Admin Dose Admin Acetaminophen/ Hydrocodone Bitart 1 tab Q4HP PRN PO 08/13/24 11:15 UNV Ondansetron HCl 4 mg Q4HP PRN IV 08/13/24 11:15 UNV Enoxaparin Sodium 40 mg DAILY SC 08/14/24 10:00 UNV Acetaminophen 650 mg Q6HP PRN PO 08/13/24 11:15 UNV Morphine Sulfate 2 mg Q4HPRN PRN IV 08/13/24 11:15 UNV Vancomycin HCl 0 ml @ 0 mls/hr UD IV 08/13/24 11:15 UNV Cefepime HCl 50 ml @ 12.5 mls/hr Q8HR IV 08/13/24 14:00 UNV Exam Vital Signs Vital Signs Date Time Temp Pulse Resp B/P (MAP) Pulse Ox O2 Delivery O2 Flow Rate FiO2 08/13/24 08:20 83 13 98 Room Air* 0 21 08/13/24 08:19 97.5 103/70 (81) 97.5 General Appearance: Alert, Oriented X3, Cooperative, No acute distress HEENT: Atraumatic, PERRLA, EOMI, Mucous membr. moist/pink Respiratory: Normal air movement Cardiovascular: Regular rate, Normal S1, Normal S2, No murmurs Abdominal: Soft Extremities: No cyanosis, No edema, Normal pulses Skin: No significant lesion Neuro: Normal speech, Strength at 5/5 X4 ext, Normal tone, Sensation intact Psych/Mental Status: Mental status NL, Mood NL Labs/Xrays Labs Test 08/12/24 23:31 08/12/24 23:20 Range/Units Urine Color Dark-yellow Yellow Urine Clarity Turbid H Clear Urine pH 6.0 5.0-9.0 Urine Specific [place] 1.008 1.001-1.035 Urine Protein Trace H Negative Urine Ketones Negative Negative Urine Blood 1+ H Negative /uL Urine Nitrite 2+ H Negative Urine Bilirubin Negative Negative Urine Urobilinogen Normal Negative mg/dL Urine Leukocyte Esterase 3+ Negative /uL Urine RBC 11 0 - 4 /hpf Urine Microscopic WBC 241 H 0-5 /HPF Urine Squamous Epithelial Cells Mod <5 /hpf Urine Bacteria Mod H None Seen /hpf Urine Mucus Few None Seen Urine Glucose Normal Normal mg/dL White Blood Count 10.4 4.4-10.8 10^3/uL Red Blood Count 4.42 4.0-5.20 10^6/uL Hemoglobin 13.6 12.2-16.2 g/dL Hematocrit 39.9 36.0-46.0 % Mean Corpuscular Volume 90.3 80.0-100.0 fL Mean Corpuscular Hemoglobin 30.9 28.0-32.0 pg Mean Corpuscular Hemoglobin Concent 34.2 32.0-36.0 g/dL Red Cell Distribution Width 13.4 11.8-14.3 % Platelet Count 214 140-450 10^3/uL Mean Platelet Volume 9.4 6.9-10.8 fL Neutrophils (%) (Auto) 63.0 37.0-80.0 % Lymphocytes (%) (Auto) 30.4 10.0-50.0 % Monocytes (%) (Auto) 5.7 0.0-12.0 % Eosinophils (%) (Auto) 0.3 0.0-7.0 % Basophils (%) (Auto) 0.6 0.0-2.0 % Neutrophils # (Auto) 6.6 1.6-8.6 10 ^3/uL Lymphocytes # (Auto) 3.2 0.4-5.4 10 ^3/uL Monocytes # (Auto) 0.6 0-1.3 10 ^3/uL Eosinophils # (Auto) 0 0-0.8 10 ^3/uL Basophils # (Auto) 0.1 0-0.2 10 ^3/uL Nucleated Red Blood Cells 0.0 % Sodium Level 139 136-145 mmol/L Potassium Level 3.8 3.5-5.1 mmol/L Chloride Level 105 98-107 mmol/L Carbon Dioxide Level 26 20-31 mmol/L Anion Gap 8 5-15 Blood Urea Nitrogen 10 9-23 mg/dL Creatinine 0.76 0.550-1.02 mg/dL Glomerular Filtration Rate Calc 104 >90 mL/min BUN/Creatinine Ratio 13.2 10.0-20.0 Serum Glucose 95 74-106 mg/dL Lactic Acid Level 0.7 0.4-2.0 mmol/L Calcium Level 9.8 8.7-10.4 mg/dL CLINICAL INFORMATION: Abdominal pain. TECHNIQUE: Axial CT images of the abdomen and pelvis were obtained without IV contrast. Coronal and sagittal reformatted images were obtained, reviewed, and stored. Evaluation of the parenchymal organs is limited without IV contrast. Evaluation of the bowel and mesentery is limited without oral contrast. All CT scans at this medical facility are performed using dose modulation techniques as appropriate to a performed exam including the following: Automated exposure control was utilized; adjustment of the MA and/or KV according to patient size; and use of iterative reconstruction technique. CTDIvol = 17.8 mGy DLP = 1060.81 mGy-cm COMPARISON: CT ABD PELVIS WO CONTRAST on DOS: 11/02/20 FINDINGS: Lung bases: Atelectasis in the lung bases. Liver: Hepatic steatosis. Biliary: No calcified gallstones or biliary ductal dilatation. Spleen: Unremarkable. Pancreas: Grossly unremarkable in its noncontrast enhanced appearance. Adrenal glands: Unremarkable. No mass. Kidneys: Mild left hydronephrosis. No obstructing calculus visualized. Small nonobstructing calculi in both kidneys measuring up to 2 mm. Aorta/Vascular: No aneurysm or significant calcification. Retroperitoneum: No mass or lymphadenopathy. Bowel/mesentery: There are mildly distended gas-filled loops of small bowel with no small bowel obstruction. Areas of mild small bowel wall thickening are seen. Appendix is visualized and appears unremarkable. There are a few nonspecific subcentimeter mesenteric lymph nodes in the right lower quadrant and central mesentery, likely reactive. Pelvic organs: Uterus is anteverted. Bladder: Unremarkable. No mass. Abdominal wall: Small fat containing umbilical hernia. Bones: No acute fracture or suspicious intraosseous lesion. IMPRESSION: 1. Mild left hydronephrosis with no obstructing calculus visualized. Bilateral small nonobstructing renal calculi as described above. 2. Nonspecific mildly distended gas-filled loops of small bowel with no small bowel obstruction. Findings may be seen with ileus or enteritis in the appropriate clinical setting. 3. Hepatic steatosis. 4. Small fat containing umbilical hernia. Procedure: XY KUB ABDOMEN SINGLE VIEW Exam Date: 08/13/2024 01:38 AM History: flank pain Comparison Study: None Technique: AP upright of the abdomen FINDINGS: No focal evidence of airspace disease. The cardiomediastinal silhouette is within normal limits. No acute osseous lesions. Nonobstructive bowel gas pattern noted. There is no evidence for pneumoperitoneum. No abnormal calcifications noted. IMPRESSION: 1. Non-specific gas-filled loops of bowel. No evidence of obstruction. Assessment/Plan Assessment/Plan Assessment Acute pyelonephritis Obesity Mild left hydronephrosis Hepatic steatosis Umbilical hernia History of kidney stones History of bilateral tubal ligation Plan Admit to med surge Antiemetics Pain management IV antibiotics-vancomycin + cefepime NS 2 L given ED Antipyretics KUB noted Blood cultures Lactic level CT abdomen and pelvis Diet Per patient she reports that she does not take medications DVT prophylaxis-Lovenox PUD prophylaxis-Protonix Discussed plan of care with patient and nurse Counseled patient on lifestyle modifications, diet, and exercise Plan discussed with: Patient My Orders Orders - SEVERO HAWKINS [employer] Procedure Category Date Status Time Ct Ab Pel Wo Con-No CT 08/13/24 Logged Oral Or Iv 11:07 Admit ADMIT 08/13/24 Transmitted 11:07 Allergies FLORESITA 08/13/24 Transmitted 11:07 Code Status CODE 08/13/24 Transmitted 11:07 Hydrocodone-Acet PHA 08/13/24 Logged 5/325mg Tab ([place] 11:15 Ondansetron Hcl PHA 08/13/24 Logged (Zofran) 11:15 Enoxaparin Sodium PHA 08/14/24 Logged (Lovenox) 10:00 Complete Blood Count LAB 08/14/24 Verified 04:00 Comprehensive LAB 08/14/24 Verified Metabolic Panel 04:00 Cardiac DIET 08/13/24 Transmitted Diet-2gna,Lofat,Lochol Lunch Acetaminophen Tablet PHA 08/13/24 Logged (Tylenol Tablet) 11:15 Morphine Sulfate PHA 08/13/24 Logged Injection 11:15 Vancomycin Per PHA 08/13/24 Logged Pharmacy 11:15 Cefepime 1gm/ 50ml PHA 08/13/24 Logged (Maxipime 1gm/50ml) 14:00 Ibuprofen Tablet PHA 08/13/24 Verified (Motrin Tablet) 14:00 Date of Service: Aug 13, 2024 Billing Provider: SEVERO HAWKINS Common Visit Codes: [id number] INP/OBS CARE (HIGH) SEVERO HAWKINS Aug 13, 2024 11:12
[2024-08-13] MEDS ORDERED: VANCOMYCIN PER PHARMACY 0 MG IV SCH (11:15)
[2024-08-13] MEDS ORDERED: ONDANSETRON HCL 4 MG/2 ML VIAL IV PRN (11:15)
--- NOTE | 2024-08-13 12:09 | DVH ---
CLINICAL INFORMATION: Abdominal pain. TECHNIQUE: Axial CT images of the abdomen and pelvis were obtained without IV contrast. Coronal and s agittal reformatted images were obtained, reviewed, and stored. Evaluation of the parenchymal organs is limited without IV contrast. Evaluation of the bowel and mesentery is limited without oral contras t. All CT scans at this medical facility are performed using dose modulation techniques as appropriat e to a performed exam including the following: Automated exposure control was utilized; adjustment of the MA and/or KV according to patient size; and use of iterative reconstruction technique. CTDIvol = 17.8 mGy DLP = 1060.81 mGy-cm COMPARISON: CT ABD PELVIS WO CONTRAST on DOS: 11/02/20 FINDINGS: Lung bases: Atelectasis in the lung bases. Liver: Hepatic steatosis. Biliary: No calcified gallstones or biliary ductal dilatation. Spleen: Unremarkable. Pancreas: Grossly unremarkable in its noncontrast enhanced appearance. Adrenal glands: Unremarkable. No mass. Kidneys: Mild left hydronephrosis. No obstructing calculus visualized. Small nonobstructing calculi i n both kidneys measuring up to 2 mm. Aorta/Vascular: No aneurysm or significant calcification. Retroperitoneum: No mass or lymphadenopathy. Bowel/mesentery: There are mildly distended gas-filled loops of small bowel with no small bowel obstr uction. Areas of mild small bowel wall thickening are seen. Appendix is visualized and appears unrem arkable. There are a few nonspecific subcentimeter mesenteric lymph nodes in the right lower quadrant and central mesentery, likely reactive. Pelvic organs: Uterus is anteverted. Bladder: Unremarkable. No mass. Abdominal wall: Small fat containing umbilical hernia. Bones: No acute fracture or suspicious intraosseous lesion. IMPRESSION: 1. Mild left hydronephrosis with no obstructing calculus visualized. Bilateral small nonobstructing r enal calculi as described above. 2. Nonspecific mildly distended gas-filled loops of small bowel with no small bowel obstruction. Find ings may be seen with ileus or enteritis in the appropriate clinical setting. 3. Hepatic steatosis. 4. Small fat containing umbilical hernia.
[2024-08-13] MEDS: VANCOMYCIN 750MG KIT 100 ML IV SCH (13:00)
[2024-08-13] MEDS: IBUPROFEN 800 MG TAB PO SCH (14:28)
[2024-08-13] MEDS: CEFEPIME 1GM/ 50ML 50 ML IV SCH (14:32)
[2024-08-13] MEDS: PANTOPRAZOLE 40 MG/10 ML VIAL INJ IV SCH (17:21)
[2024-08-13] MEDS: HYDROcodone-ACET 5/325MG TAB PO PRN (18:47)
[2024-08-14] VITALS (7 sets, daily range): BP systolic 91–118; BP diastolic 41–71; PULSE 58–90; RESP 17–18; TEMP 97.3–98.1; O2SAT 91–100
[2024-08-14] MEDS: VANCOMYCIN 1GM/200ML PM 200 ML IV ONE (01:31)
[2024-08-14 05:53] LABS: Basophils # (auto) 0 10 ^3/uL (0-0.2); Basophils % (auto) 0.1 % (0.0-2.0); Eosinophils # (auto) 0.1 10 ^3/uL (0-0.8); Eosinophils % (auto) 0.8 % (0.0-7.0); Hematocrit 37.6 % (36.0-46.0); Hemoglobin 12.6 g/dL (12.2-16.2); Lymphocytes # (auto) 1.9 10 ^3/uL (0.4-5.4); Lymphocytes % (auto) 31.8 % (10.0-50.0); Mean Corpuscular Hgb Conc. 33.5 g/dL (32.0-36.0); Mean Corpuscular Volume 92.6 fL (80.0-100.0); Monocytes # (auto) 0.4 10 ^3/uL (0-1.3); Monocytes % (auto) 6.7 % (0.0-12.0); Neutrophils # (auto) 3.6 10 ^3/uL (1.6-8.6); Neutrophils % (auto) 60.6 % (37.0-80.0); Platelet Count (auto) 166 10^3/uL (140-450); Red Blood Cells 4.06 10^6/uL (4.0-5.20); Red Cell Distribution Width 13.5 % (11.8-14.3)
[2024-08-14 05:54] LABS: Alanine Aminotransferase 28 U/L (7-40); Alkaline Phosphatase 68 U/L (46-116); Anion Gap 7 (5-15); Aspartate Aminotransferase 22 U/L (13-40); BUN/Creatinine Ratio 10.3 (10.0-20.0); Calcium 9.5 mg/dL (8.7-10.4); Carbon Dioxide 26 mmol/L (20-31); Chloride 107 mmol/L (98-107); Glucose 91 mg/dL (74-106); Potassium 4.3 mmol/L (3.5-5.1); Sodium 140 mmol/L (136-145); Total Protein 6.2 g/dL (5.7-8.2)
[2024-08-14 05:55] LABS: Bilirubin, Total 1.3 mg/dL (0.2-1.0); Blood Urea Nitrogen 7 mg/dL (9-23)
[2024-08-14] MEDS: ENOXAPARIN SOD 40 MG/0.4 ML SYRINGE SC SCH (08:27)
--- NOTE | 2024-08-14 13:01 | DVHPN2 ---
Progress Note - Dictate Date Seen: Aug 14, 2024 Medical Necessity Reason Pt with a Central, PICC or Fol: No Subjective She was tolerating her diet. Says her abdominal pain has improved. No diarrhea. vital signs Vital Sign Date Time Temp Pulse Resp B/P (MAP) Pulse Ox O2 Delivery O2 Flow Rate FiO2 08/14/24 12:38 98.1 67 18 93/41 (58) 99 98.1 08/14/24 08:10 Room Air* 0 21 Total Intake and Output 08/13/24 08/13/24 08/14/24 15:00 23:00 07:00 Intake Total 1000 ml 500 ml Balance 1000 ml 500 ml medications Current Medications Medications Dose Ordered Sig/Azul Route Start Time Stop Time Status Last Admin Dose Admin Acetaminophen/ Hydrocodone Bitart 1 tab Q4HP PRN PO 08/13/24 11:15 08/14/24 08:45 1 TAB Ondansetron HCl 4 mg Q4HP PRN IV 08/13/24 11:15 Enoxaparin Sodium 40 mg DAILY SC 08/14/24 10:00 08/14/24 08:27 40 MG Acetaminophen 650 mg Q6HP PRN PO 08/13/24 11:15 Morphine Sulfate 2 mg Q4HPRN PRN IV 08/13/24 11:15 Vancomycin HCl 0 ml @ 0 mls/hr UD IV 08/13/24 11:15 Cefepime HCl 50 ml @ 12.5 mls/hr Q8HR IV 08/13/24 14:00 08/14/24 05:24 12.5 MLS/HR Ibuprofen 800 mg TID PO 08/13/24 14:00 08/14/24 05:24 800 MG Vancomycin HCl 100 ml @ 100 mls/hr Q12H IV 08/13/24 13:00 08/14/24 01:33 100 MLS/HR Pantoprazole Sodium 40 mg DAILY IV 08/13/24 16:15 08/14/24 08:26 40 MG objective Alert awake oriented times HEENT neck supple no JVD. Heart regular rate and rhythm S1-S2. Lungs fair air movement without rales wheezes. Abdomen obese soft nontender positive bowel sounds. Extremities no edema positive pulses. laboratory and microbiology Laboratory Tests 08/14/24 04:22 Test 08/14/24 04:22 Range/Units Serum Glucose 91 74-106 mg/dL Assessment/Plan Continue current antibiotics pain medications and supportive care and treatment as she is on. If he remains stable consider discharge home in the next 24 hours. Discussed with the patient regarding care plan. Problems(with codes): (1) Acute abdominal pain (2) UTI (urinary tract infection) Plan discussed with: Patient RUKHSANA EASTMAN MD Aug 14, 2024 13:01
[2024-08-14] MEDS: MORPHINE SULFATE INJ 2 MG/ml SYRG IV PRN (15:49)
[2024-08-14] MEDS: ACETAMINOPHEN 325 MG TAB PO PRN (17:37)
[2024-08-14] MEDS: VANCOMYCIN 750MG KIT 100 ML IV SCH (21:07)
[2024-08-15 01:00] VITALS: BP 106/72; PULSE 85; RESP 17; TEMP 98.5; O2SAT 96
[2024-08-15 05:00] VITALS: BP 93/42; PULSE 60; RESP 17; TEMP 98.1; O2SAT 95
[2024-08-15 08:16] LABS: Basophils # (auto) 0 10 ^3/uL (0-0.2); Basophils % (auto) 0.1 % (0.0-2.0); Eosinophils # (auto) 0.1 10 ^3/uL (0-0.8); Eosinophils % (auto) 1.4 % (0.0-7.0); Hematocrit 34.8 % (36.0-46.0); Hemoglobin 11.7 g/dL (12.2-16.2); Lymphocytes # (auto) 2.3 10 ^3/uL (0.4-5.4); Mean Corpuscular Hemoglobin 30.7 pg (28.0-32.0); Mean Corpuscular Hgb Conc. 33.8 g/dL (32.0-36.0); Monocytes # (auto) 0.4 10 ^3/uL (0-1.3); Monocytes % (auto) 8.3 % (0.0-12.0); Neutrophils # (auto) 2.1 10 ^3/uL (1.6-8.6); Neutrophils % (auto) 42.2 % (37.0-80.0); Nucleated Red Blood Cells % 0.1 %; Platelet Count (auto) 184 10^3/uL (140-450); Red Blood Cells 3.82 10^6/uL (4.0-5.20); Red Cell Distribution Width 13.3 % (11.8-14.3); White Blood Cell 4.9 10^3/uL (4.4-10.8)
[2024-08-15 08:30] VITALS: BP 95/56; PULSE 58; RESP 14; TEMP 97.4; O2SAT 98
[2024-08-15 12:30] VITALS: BP 85/45; PULSE 59; RESP 16; TEMP 97.9; O2SAT 96
[2024-08-15 13:00] VITALS: BP 98/52; PULSE 59
[2024-08-15] MEDS: LACTULOSE 20Gm/30ML SOLN PO ONE (16:00)
[2024-08-15] MEDS ORDERED: CEFD300C2 PO (16:26)
[2024-08-15] MEDS ORDERED: PANT40TA57 PO (16:26)
[2024-08-15] MEDS ORDERED: IBUP-1456 PO (16:26)
[2024-08-15] MEDS ORDERED: SENN17.23 PO (16:27)
--- NOTE | 2024-08-15 16:28 | DVHDS2 ---
Discharge Summary Date of Admission Aug 13, 2024 at 11:07 Date of Discharge: Aug 15, 2024 Labs/Diagnostic Data: Laboratory Results Test 08/15/24 12:04 08/15/24 07:30 08/14/24 04:22 08/12/24 23:31 Vancomycin Level Trough 8.6 ug/mL (5-10) White Blood Count 4.9 10^3/uL (4.4-10.8) Red Blood Count 3.82 10^6/uL (4.0-5.20) Hemoglobin 11.7 g/dL (12.2-16.2) Hematocrit 34.8 % (36.0-46.0) Mean Corpuscular Volume 91.0 fL (80.0-100.0) Mean Corpuscular Hemoglobin 30.7 pg (28.0-32.0) Mean Corpuscular Hemoglobin Concent 33.8 g/dL (32.0-36.0) Red Cell Distribution Width 13.3 % (11.8-14.3) Platelet Count 184 10^3/uL (140-450) Mean Platelet Volume 9.4 fL (6.9-10.8) Neutrophils (%) (Auto) 42.2 % (37.0-80.0) Lymphocytes (%) (Auto) 48.0 % (10.0-50.0) Monocytes (%) (Auto) 8.3 % (0.0-12.0) Eosinophils (%) (Auto) 1.4 % (0.0-7.0) Basophils (%) (Auto) 0.1 % (0.0-2.0) Neutrophils # (Auto) 2.1 10 ^3/uL (1.6-8.6) Lymphocytes # (Auto) 2.3 10 ^3/uL (0.4-5.4) Monocytes # (Auto) 0.4 10 ^3/uL (0-1.3) Eosinophils # (Auto) 0.1 10 ^3/uL (0-0.8) Basophils # (Auto) 0 10 ^3/uL (0-0.2) Nucleated Red Blood Cells 0.1 % Creatinine 0.60 mg/dL (0.550-1.02) Glomerular Filtration Rate Calc 119 mL/min (>90) Sodium Level 140 mmol/L (136-145) Potassium Level 4.3 mmol/L (3.5-5.1) Chloride Level 107 mmol/L (98-107) Carbon Dioxide Level 26 mmol/L (20-31) Anion Gap 7 (5-15) Blood Urea Nitrogen 7 mg/dL (9-23) BUN/Creatinine Ratio 10.3 (10.0-20.0) Serum Glucose 91 mg/dL (74-106) Calcium Level 9.5 mg/dL (8.7-10.4) Total Bilirubin 1.3 mg/dL (0.2-1.0) Aspartate Amino Transferase (AST) 22 U/L (13-40) Alanine Aminotransferase (ALT) 28 U/L (7-40) Alkaline Phosphatase 68 U/L (46-116) Total Protein 6.2 g/dL (5.7-8.2) Albumin 4.0 g/dL (3.2-4.8) Urine Color Dark-yellow (Yellow) Urine Clarity Turbid (Clear) Urine pH 6.0 (5.0-9.0) Urine Specific [place] 1.008 (1.001-1.035) Urine Protein Trace (Negative) Urine Ketones Negative (Negative) Urine Blood 1+ /uL (Negative) Urine Nitrite 2+ (Negative) Urine Bilirubin Negative (Negative) Urine Urobilinogen Normal mg/dL (Negative) Urine Leukocyte Esterase 3+ /uL (Negative) Urine RBC 11 /hpf (0 - 4) Urine Microscopic WBC 241 /HPF (0-5) Urine Squamous Epithelial Cells Mod /hpf (<5) Urine Bacteria Mod /hpf (None Seen) Urine Mucus Few (None Seen) Urine Glucose Normal mg/dL (Normal) Test 08/12/24 23:20 Lactic Acid Level 0.7 mmol/L (0.4-2.0) Other Laboratory Tests 08/15/24 07:30 08/14/24 04:22 Brief Hx & Hospital Course: BETTY Morillo is a 34-year-old female with past medical history of kidney stones and bilateral tubal ligation who presents to the ED with abdominal pain, right flank pain, dysuria, nausea, and urinary frequency x3 days. Patient reports that the pain is 10/10 pulsating and constant. She is also endorsing bilateral lower quadrant pain with no hematuria endorsed. Patient reports that there are no triggering or alleviating factors. Patient denies any chest pain, shortness of breath, fever, chills, lightheadedness, weakness, dizziness, recent sick contacts, recent travels, recent ingestion of spoiled food, and recent trauma or injury. She is admitted and treated supportively for her symptoms. Patient noted to have a urinary infection and constipation. Therefore received antibiotics and laxatives. With these modalities her symptoms resolved. Patient is feeling better. Pain is improved. Tolerating diet. No nausea vomiting. Ambulating without any issues. Given she is clinically she can be safely discharged home. I have talked with the patient regarding diagnosis, when she received, discharge medications, discharge instructions and follow-up plan of care. She has verbalized understanding of these and agree with care plan as outlined. Condition at Discharge: Stable Final Diagnosis/Problems List Constipation, Acute UTI Discharge Disposition: Home Discharge Instruct/Medications Diet: Consistent carbohydrate, Cardiac 2g Na,low cholest Activity: No Restrictions, As Tolerated Follow Up/Referral: Primary care physician next week for constipation and flank pain/UTI symptoms Medications: As prescribed New Medications: Cefdinir (Cefdinir) 300 Mg Cap 1 CAP PO BID, #10 CAP Pantoprazole Sodium Sesquihydr (Pantoprazole Sodium Dr) 40 Mg Tab 40 MG PO DAILY, #20 TAB Senna (Senokot Extra Strength) 17.2 Mg Tab 17.2 MG PO QPM, #14 TAB Changed Medications: Ibuprofen (Ibuprofen) 800 Mg Tab 1 TAB PO TID PRN, #24 TAB (Medication details modified) As needed For pain take it with food Continued Medications: Ondansetron HCl (Ondansetron) 4 Mg Tab 4 MG PO Q6HP PRN for 2 Days, #8 TAB 0 Refills Promethazine-Dm (Promethazine Dm 6.25-15 mg/5Ml) 1 [place] 5 ML PO Q6HPRN PRN for 10 Days, #200 ML 0 Refills Discontinued Medications: Benzonatate (Benzonatate) 100 Mg Cap 100 MG PO TID for 10 Days, #30 CAP 0 Refills Ciprofloxacin Hcl (Cipro) 500 Mg Tab 1 TAB PO BID, #14 TAB Loperamide HCl (Imodium A-D) 2 Mg Cap 4 MG PO BID, #30 CAP Nitrofurantoin Monohydrate Mac (Macrobid) 100 Mg Cap 100 MG PO BID for 7 Days, #14 CAP 0 Refills Discharge Statement: "Patient was advised to return to the ER or call 911 if any headaches, dizziness, shortness of breath, chest pain, abdominal pain, bleeding, fevers, or worsening of medical condition. Patient was counseled about treatment plan, medications, possible side effects, patientverbalized understanding. All questions were answered to the best of my ability. This discharge took greater then 30 minutes in planning, reviewing documentation, counseling the patient, and discussing with other team members." ASSESSMENT ASSESSMENT Assessment Constipation, Acute UTI Date of Service: Aug 15, 2024 Billing Provider: RUKHSANA EASTMAN MD Common Visit Codes: 43573-PAB/OBS DISCH DAY <30MIN RUKHSANA EASTMAN MD Aug 15, 2024 16:28
[2024-08-15 16:30] VITALS: BP 94/63; PULSE 68; RESP 16; TEMP 97.9; O2SAT 94
[2024-08-15] MEDS ORDERED: VANCOMYCIN 1.5GM/250ML 250 ML IV SCH (21:00)
== END 2024-08-15 18:45 | disposition home or self-care (01) | DRG 463 ==
LOC: ER 22:49 → OVERFLOW 08-13 11:07 → WEST WING 08-13 11:09
PROVIDERS: ADMIT Hospitalist; ATTEND Hospitalist
DX: N10 Acute pyelonephritis (principal); K76.0 Fatty (change of) liver, not elsewhere classified; E66.9 Obesity, unspecified; K56.41 Fecal impaction; Z68.35 Body mass index [BMI] 35.0-35.9, adult; K42.9 Umbilical hernia without obstruction or gangrene; Z82.49 Family history of ischemic heart disease and other diseases of the circulatory system; Z87.442 Personal history of urinary calculi; Z98.51 Tubal ligation status
CPT/HCPCS: 36415; 74018; 74176; 80048; 80053; 80202; 81001; 82565; 83605; 85025; 87040; 96361; 96374; 96375; 99291; G0378; J0692; J1885; J2405; J2470

== ENCOUNTER 2024-09-14 03:34 | Emergency (ER) | payer MEDICAID ==
[~2024-09-14] VITALS: Ht 165.1 cm; Wt 95.5 kg
[~2024-09-14 03:34] MED LIST changes: -BENZ100C97 PO; +CEFD300C2 PO; -CIPR-173 PO; -LOPE7.5C PO; -NITR-87 PO; +PANT40TA57 PO; +SENN17.23 PO
--- NOTE | 2024-09-14 04:03 | ED.PDOC ---
History of Present Illness HPI Comments 34 y/o obese F, with a history of kidney stones, UTI's, and hysterectomy, presents with 4x day history of bilateral flank pain, that radiates to her lower abdomen, with associated nausea and vomiting. Patient is a [place] speaker. She reports on pain being a 10/10 in severity, worse on her right-flank area, and feeling similar to when she was seen and diagnosed with kidney stones 3x weeks ago. Patient admits to Ibuprofen use at 2000, last night, prior to arrival. She denies any recent travel, injuries, abnormal food or substance intake, sick contact, or further relevant history. Reports no bloody or bilious vomitus, diarrhea, urinary symptoms, fever, chills, or further associated symptoms. Time Seen by MD: 03:45 Primary Care Provider: [facility] Reviewed Notes: Nurses Notes, Medications, Allergies Allergies: Coded Allergies: NO KNOWN ALLERGIES (Unverified , 04/09/20) Home Meds Active Scripts Sulfamethoxazole W/Trimethopri (Bactrim Ds Tablet) 1 Tab Tb, 1 TAB PO BID for 7 Days, #14 TAB Prov:MK HICKEY MD 09/14/24 Senna (Senokot Extra Strength) 17.2 Mg Tab, 17.2 MG PO QPM, #14 TAB Prov:RUKHSANA EASTMAN MD 08/15/24 Pantoprazole Sodium Sesquihydr (Pantoprazole Sodium Dr) 40 Mg Tab, 40 MG PO DAILY, #20 TAB Prov:RUKHSANA EASTMAN MD 08/15/24 Cefdinir (Cefdinir) 300 Mg Cap, 1 CAP PO BID, #10 CAP Prov:RUKHSANA EASTMAN MD 08/15/24 Ibuprofen (Ibuprofen) 800 Mg Tab, 1 TAB PO TID PRN, #24 TAB As needed For pain take it with food Prov:RUKHSANA EASTAMN MD 08/15/24 Ondansetron HCl (Ondansetron) 4 Mg Tab, 4 MG PO Q6HP PRN for 2 Days, #8 TAB 0 Refills Prov:ADRIANO GEIGER SEWER PIPE CLEANER 06/29/24 Promethazine-Dm (Promethazine Dm 6.25-15 mg/5Ml) 1 La [place], 5 ML PO Q6HPRN PRN for 10 Days, #200 ML 0 Refills Prov:ADRIANO GEIGER SEWER PIPE CLEANER 06/02/23 Information Source: Patient Mode of Arrival: Ambulatory Severity: Moderate Timing: Days Duration: Since onset Prehospital treatment: Pain Meds Past Medical History PAST MEDICAL HISTORY: Kidney Stones, UTI'S Surgical History: Hysterectomy 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 History Family History Family History: Reviewed,noncontributory to illness Social History Smoker: Non-Smoker Alcohol: Occasionally Drugs: Denies Drug Use Lives In: Home All Other Systems: Reviewed and Negative (Comprehensive systems review obtained and negative except for what is stated in the HPI.) Physical Exam General Appearance: Mild Distress, Obese HEENT: Normal ENT Inspection, Pharynx Normal, TMs Normal Neck: Full Range of Motion, Non-Tender, Normal, Normal Inspection Respiratory: Chest Non-Tender, Lungs Clear, No Accessory Muscle Use, No Respiratory Distress, Normal Breath Sounds Cardiovascular: No Edema, No JVD, No Murmur, No Gallop, Normal Peripheral Pulses, Regular Rate/Rhythm Breast Exam: Deferred Gastrointestinal: No Organomegaly, Non Tender, No Pulsatile Mass, Normal Bowel Sounds, Soft Genitalia: Deferred Pelvic: Deferred Rectal: Deferred Extremities: No calf tenderness, Normal capillary refill, Normal inspection, Normal range of motion, Non-tender, No pedal edema Musculoskeletal : Location: Right Extremity Location: Other (CVA) Apperance: Normal, Tenderness Neurologic: Alert, manifold operator II-XII nml as Tested, No Motor Deficits, Normal Affect, Normal Mood, No Sensory Deficits Cerebellar Function: Normal Reflexes: Normal Skin: Dry, Normal Color, Warm Lymphatic: No Adenopathy Was a procedure done? Was a procedure done?: No Differential Dx Considerations may include: nephrolithiasis, pyelonephritis, cholelithiasis, cholecystitis, diverticulitis, appendicitis, among others X-Ray, Labs, Meds, VS Vital Signs Date Time Temp Pulse Resp B/P (MAP) Pulse Ox O2 Delivery O2 Flow Rate FiO2 09/14/24 06:36 16 96 Room Air* 0 21 09/14/24 05:47 98.2 95 20 113/71 (85) 100 98.2 09/14/24 05:47 95 20 100 Room Air 09/14/24 03:50 99.9 117 18 121/83 (96) 97 99.9 Lab Test 09/14/24 04:05 09/14/24 03:50 Range/Units White Blood Count 7.9 4.4-10.8 10^3/uL Red Blood Count 4.60 4.0-5.20 10^6/uL Hemoglobin 13.9 12.2-16.2 g/dL Hematocrit 41.2 36.0-46.0 % Mean Corpuscular Volume 89.7 80.0-100.0 fL Mean Corpuscular Hemoglobin 30.2 28.0-32.0 pg Mean Corpuscular Hemoglobin Concent 33.6 32.0-36.0 g/dL Red Cell Distribution Width 13.8 11.8-14.3 % Platelet Count 190 140-450 10^3/uL Mean Platelet Volume 9.8 6.9-10.8 fL Neutrophils (%) (Auto) 74.6 37.0-80.0 % Lymphocytes (%) (Auto) 19.8 10.0-50.0 % Monocytes (%) (Auto) 4.7 0.0-12.0 % Eosinophils (%) (Auto) 0.7 0.0-7.0 % Basophils (%) (Auto) 0.2 0.0-2.0 % Neutrophils # (Auto) 5.9 1.6-8.6 10 ^3/uL Lymphocytes # (Auto) 1.6 0.4-5.4 10 ^3/uL Monocytes # (Auto) 0.4 0-1.3 10 ^3/uL Eosinophils # (Auto) 0.1 0-0.8 10 ^3/uL Basophils # (Auto) 0 0-0.2 10 ^3/uL Nucleated Red Blood Cells 0.1 % Sodium Level 136 136-145 mmol/L Potassium Level 4.7 3.5-5.1 mmol/L Chloride Level 103 98-107 mmol/L Carbon Dioxide Level 25 20-31 mmol/L Anion Gap 8 5-15 Blood Urea Nitrogen 11 9-23 mg/dL Creatinine 0.80 0.550-1.02 mg/dL Glomerular Filtration Rate Calc 98 >90 mL/min BUN/Creatinine Ratio 13.8 10.0-20.0 Serum Glucose 100 74-106 mg/dL Lactic Acid Level 1.8 0.4-2.0 mmol/L Calcium Level 9.3 8.7-10.4 mg/dL Total Bilirubin 0.9 0.2-1.0 mg/dL Aspartate Amino Transferase (AST) 23 13-40 U/L Alanine Aminotransferase (ALT) 29 7-40 U/L Alkaline Phosphatase 79 46-116 U/L Total Protein 7.1 5.7-8.2 g/dL Albumin 4.5 3.2-4.8 g/dL Lipase 53 12-53 U/L Urine Color Colorless Yellow Urine Clarity Turbid H Clear Urine pH 7.5 5.0-9.0 Urine Specific [place] 1.012 1.001-1.035 Urine Protein Negative Negative Urine Ketones Negative Negative Urine Blood Negative Negative /uL Urine Nitrite Negative Negative Urine Bilirubin Negative Negative Urine Urobilinogen Normal Negative mg/dL Urine Leukocyte Esterase Negative Negative /uL Urine RBC 1 0 - 4 /hpf Urine Microscopic WBC 11 H 0-5 /HPF Urine Squamous Epithelial Cells Mod <5 /hpf Urine Bacteria None seen None Seen /hpf Urine Glucose Normal Normal mg/dL Urine Test Negative Negative Current Medications Medications (Trade) Dose Ordered Sig/Azul Route Start Time Stop Time Status Last Admin Sodium Chloride 1,000 ml @ 1,000 mls/hr Q1H ONCE IVB 09/14/24 04:00 09/14/24 04:59 DC 09/14/24 06:20 Ketorolac Tromethamine (Toradol Injection) 15 mg ONCE ONCE IV 09/14/24 04:00 09/14/24 04:01 DC 09/14/24 06:23 Acetaminophen (Tylenol Tablet) 1,000 mg ONCE ONCE PO 09/14/24 04:00 09/14/24 04:01 DC 09/14/24 06:23 Ceftriaxone Sodium 50 ml @ 100 mls/hr ONCE ONCE IV 09/14/24 05:45 09/14/24 06:14 DC 09/14/24 06:23 [place] [id number] Ph: [phone] DIAGNOSTIC IMAGING Diagnostic Imaging Report : [id number] Signed PATIENT: BETTY BUSTAMANTE ACCT: [id number] UNIT: [id number] : 1990 LOC: ER ROOM / BED: / AGE / SEX: 34 / F ADM STATUS: REG ER SERVICE [id number] ORDERING PHYSICIAN: MK HICKEY MD PROCEDURE(s): ABPL - CT AB PEL WO CON-NO ORAL OR IV REASON: right flank pain ORDER NUMBER(s): [id number], ACCESSION NUMBER(s): [id number] Exam: CT CT AB PEL WO CON-NO ORAL OR IV History: right flank pain Comparison Study: CT CT AB PEL WO CON-NO ORAL OR IV on DOS: 08/13/24 Technique: Multidetector spiral CT of the abdomen and pelvis was performed from lung bases to pubic symphysis. Imaging was performed without intravenous contrast. Coronal and sagittal multiplanar reformats were obtained from the axial data set by the technologist. Radiation Dose : 1. Abdomen/Pelvis: CTDIvol 19.94 mGy, DLP 1148.53 mGy*cm. Findings: Evaluation of vasculature and solid organs is limited due to lack of intravenous contrast use. Lung Bases: Lung bases are clear. Visualized portions of the heart and pericardium are unremarkable. Liver: The liver is normal in size. No focal lesions. Diffusely hypoattenuating liver parenchyma consistent with hepatic steatosis. Gallbladder and Biliary Tree: The gallbladder is unremarkable. No intrahepatic or extrahepatic biliary ductal dilatation. Spleen: Unremarkable Pancreas: The pancreas is grossly unremarkable. Adrenal Glands: Unremarkable Kidneys: Mild left hydronephrosis without obstructing stone seen. Bilateral nonobstructive intrarenal calculi which are punctate. GI tract: The stomach is grossly normal in appearance. No evidence of small bowel wall thickening or abnormal dilatation to suggest bowel obstruction. The colon is unremarkable. The appendix is normal in size. Peritoneum/mesentery/retroperitoneum. No evidence of free intraperitoneal air. No ascites. No evidence of suspicious lymphadenopathy. Abdominal Wall: Fat containing umbilical hernia. Vasculature: The visualized abdominal aorta is normal in size and caliber. Evaluation of abdominal and pelvic vessels is limited due to lack of intravenous contrast. Urinary Bladder: Grossly unremarkable for degree of distention. Pelvic Organs: Unremarkable Musculoskeletal: No aggressive focal bony lesions, acute fractures or dislocation. IMPRESSION: 1. Mild left hydronephrosis. No obstructing calculus visualized. Punctate bilateral nonobstructing intrarenal calculi. 2. Hepatic steatosis. 3. Fat containing umbilical hernia. ATED BY: JAYMIE MOE MD DICTATED DATE/TIME: 09/14/24509 SIGNED BY: JAYMIE MOE MD SIGNED DATE/TIME: 09/14/24509 CC: Time of 1ST Reevaluation: 04:15 Reevaluation 1ST: Unchanged Patient Education/Counseling: Diagnosis, Treatment, Need For Follow Up Family Education/Counseling: No Family Present Departure 1 Departure Time of Disposition: 06:00 Impression: Primary Impression: Flank pain Additional Impression: UTI (urinary tract infection) Disposition: 01 HOME / SELF CARE / HOMELESS Condition: Stable e-Prescriptions Sulfamethoxazole W/Trimethopri (Bactrim Ds Tablet) 1 Tab Tb 1 TAB PO BID for 7 Days, #14 TAB Prov: MK HICKEY MD 09/14/24 Discharged With: Self Critical Care Note Critical Care Time?: No Stability Stability form required: No Heart Score Heart Score: Heart Score Response (Comments) Value History N/A 0 EKG N/A 0 Age N/A 0 Risk Factors N/A 0 Troponin N/A 0 Total 0 I personally scribed for MK HICKEY MD ([email or web address]) on 09/14/24 at 04:03. E lectronically submitted by Norberto Mansfield ([email or web address]). I personally scribed for MK HICKEY MD ([email or web address]) on 09/14/24 at 05:26. Electronically submitted by Norberto Mansfield ([email or web address]). MK HICKEY MD September 14, 2024 04:03
[2024-09-14 04:21] LABS: Urine Bacteria None Seen /hpf (None Seen)
[2024-09-14 04:34] LABS: Basophils # (auto) 0 10 ^3/uL (0-0.2); Basophils % (auto) 0.2 % (0.0-2.0); Eosinophils # (auto) 0.1 10 ^3/uL (0-0.8); Eosinophils % (auto) 0.7 % (0.0-7.0); Hematocrit 41.2 % (36.0-46.0); Hemoglobin 13.9 g/dL (12.2-16.2); Lymphocytes # (auto) 1.6 10 ^3/uL (0.4-5.4); Lymphocytes % (auto) 19.8 % (10.0-50.0); Mean Corpuscular Hemoglobin 30.2 pg (28.0-32.0); Mean Corpuscular Hgb Conc. 33.6 g/dL (32.0-36.0); Mean Corpuscular Volume 89.7 fL (80.0-100.0); Monocytes # (auto) 0.4 10 ^3/uL (0-1.3); Monocytes % (auto) 4.7 % (0.0-12.0); Neutrophils # (auto) 5.9 10 ^3/uL (1.6-8.6); Neutrophils % (auto) 74.6 % (37.0-80.0); Nucleated Red Blood Cells % 0.1 %; Platelet Count (auto) 190 10^3/uL (140-450); Red Cell Distribution Width 13.8 % (11.8-14.3); White Blood Cell 7.9 10^3/uL (4.4-10.8)
[2024-09-14 04:51] LABS: Urine Blood Negative /uL (Negative); Urine Clarity Turbid (Clear); Urine Color Colorless (Yellow); Urine Protein, UAD Negative (Negative); Urine Specific Gravity 1.012 (1.001-1.035); Urine Squamous Epithelial Cell MOD /hpf (<5); Urine Urobilinogen Normal (Negative); Urine WBC 11 /HPF (0-5); Urine pH 7.5 (5.0-9.0)
[2024-09-14 04:52] LABS: Alanine Aminotransferase 29 U/L (7-40); Alkaline Phosphatase 79 U/L (46-116); Anion Gap 8 (5-15); Aspartate Aminotransferase 23 U/L (13-40); BUN/Creatinine Ratio 13.8 (10.0-20.0); Blood Urea Nitrogen 11 mg/dL (9-23); Calcium 9.3 mg/dL (8.7-10.4); Carbon Dioxide 25 mmol/L (20-31); Chloride 103 mmol/L (98-107); Glucose 100 mg/dL (74-106); Lipase 53 U/L (12-53); Potassium 4.7 mmol/L (3.5-5.1); Sodium 136 mmol/L (136-145); Total Protein 7.1 g/dL (5.7-8.2)
[2024-09-14 04:53] LABS: Albumin 4.5 g/dL (3.2-4.8); Bilirubin, Total 0.9 mg/dL (0.2-1.0)
--- NOTE | 2024-09-14 05:13 | DVH ---
Exam: CT CT AB PEL WO CON-NO ORAL OR IV History: right flank pain Comparison Study: CT CT AB PEL WO CON-NO ORAL OR IV on DOS: 08/13/24 Technique: Multidetector spiral CT of the abdomen and pelvis was performed from lung bases to pubic s ymphysis. Imaging was performed without intravenous contrast. Coronal and sagittal multiplanar reform ats were obtained from the axial data set by the technologist. Radiation Dose : 1. Abdomen/Pelvis: CTDIvol 19.94 mGy, DLP 1148.53 mGy*cm. Findings: Evaluation of vasculature and solid organs is limited due to lack of intravenous contrast use. Lung Bases: Lung bases are clear. Visualized portions of the heart and pericardium are unremarkable. Liver: The liver is normal in size. No focal lesions. Diffusely hypoattenuating liver parenchyma con sistent with hepatic steatosis. Gallbladder and Biliary Tree: The gallbladder is unremarkable. No intrahepatic or extrahepatic biliar y ductal dilatation. Spleen: Unremarkable Pancreas: The pancreas is grossly unremarkable. Adrenal Glands: Unremarkable Kidneys: Mild left hydronephrosis without obstructing stone seen. Bilateral nonobstructive intrarenal calculi which are punctate. GI tract: The stomach is grossly normal in appearance. No evidence of small bowel wall thickening or abnormal dilatation to suggest bowel obstruction. The colon is unremarkable. The appendix is normal i n size. Peritoneum/mesentery/retroperitoneum. No evidence of free intraperitoneal air. No ascites. No evidenc e of suspicious lymphadenopathy. Abdominal Wall: Fat containing umbilical hernia. Vasculature: The visualized abdominal aorta is normal in size and caliber. Evaluation of abdominal a nd pelvic vessels is limited due to lack of intravenous contrast. Urinary Bladder: Grossly unremarkable for degree of distention. Pelvic Organs: Unremarkable Musculoskeletal: No aggressive focal bony lesions, acute fractures or dislocation. IMPRESSION: 1. Mild left hydronephrosis. No obstructing calculus visualized. Punctate bilateral nonobstructing in trarenal calculi. 2. Hepatic steatosis. 3. Fat containing umbilical hernia.
[2024-09-14] MEDS ORDERED: BACDST PO (05:43)
[2024-09-14 05:47] VITALS: BP 113/71; PULSE 95; TEMP 98.2
[2024-09-14] MEDS: SODIUM CHLORIDE 0.9% 1,000 ML IVB ONE (06:20)
[2024-09-14] MEDS: KETOROLAC TROMETH 30 MG/ML 1ML VIAL IV ONE (06:23)
[2024-09-14] MEDS: ACETAMINOPHEN 325 MG TAB PO ONE (06:23)
[2024-09-14] MEDS: cefTRIAXone 1GM/50ML D5W 50 ML IV ONE (06:23)
[2024-09-14 06:36] VITALS: RESP 16; O2SAT 96
== END 2024-09-14 07:14 | disposition home or self-care (01) ==
LOC: ER 03:34
DX: N39.0 Urinary tract infection, site not specified (principal); E66.9 Obesity, unspecified; Z90.710 Acquired absence of both cervix and uterus; Z87.442 Personal history of urinary calculi; Z79.899 Other long term (current) drug therapy
CPT/HCPCS: 36415; 74176; 80053; 81001; 81025; 83605; 83690; 85025; 87040; 87077; 87186; 96365; 96375; 99285; J0696; J1885